=== PATIENT | female | born 1975 | race Caucasian/White ===

== ENCOUNTER → 2019-07-08 08:10 | Outpatient (CLI) | payer OTHER, SELFPAY ==
[2019-07-08 09:19] LABS: Basophils % 0.6 % (0.1-2.0); Eosinophils # 0.1 K/mm3 (0.0-0.4); Hematocrit 39.2 % (37.0-47.0); Hemoglobin 13.1 g/dL (12.2-16.2); Lymphocytes # 1.4 K/mm3 (0.7-4.5); Lymphocytes % 24.4 % (10-50); Mean Corpuscular HGB Conc 33.3 g/dL (31.8-35.4); Mean Corpuscular Hemoglobin 32.2 pg (27.0-31.2); Mean Corpuscular Volume 96.7 fl (81-99); Mean Platelet Volume 8.2 fl (7.4-10.4); Monocytes # 0.4 K/mm3 (0.1-1.0); Monocytes % 6.8 % (1.7-9.3); Neutrophils # 3.6 K/mm3 (1.8-7.8); Neutrophils % 66.1 % (37.0-80.0); Platelet Count 218 K/mm3 (142-424); Red Blood Count 4.05 M/mm3 (4.20-5.40); Red Cell Distribution Width 12.4 % (11.5-17.5); White Blood Count 5.5 K/mm3 (4.8-10.8)
[2019-07-08 13:10] LABS: Alanine Aminotransferase 12 U/L (12-78); Albumin Level 3.5 gm/dL (3.4-5.0); Albumin/Globulin Ratio 0.9 (1.1-1.8); Alkaline Phosphatase 72 U/L (46-116); Anion Gap 13.6 mEq/L (5-15); Aspartate Amino Transferase 6 U/L (15-37); Bilirubin,Total 0.3 mg/dL (0.2-1.0); Blood Urea Nitrogen 15 mg/dL (7-18); Calcium 8.1 mg/dL (8.5-10.1); Carbon Dioxide 25 mmol/L (21.0-32.0); Chloride 104 mmol/L (98-107); Chol/HDL Ratio 2.7 (1-3.5); Cholesterol 163 mg/dL (140-200); Creatinine,Serum 0.75 mg/dL (0.55-1.02); Estimated Glomerular Filt Rate 84 ml/min (>60); GFR (African American) 101 ML/MIN (>60); Globulin 3.7 gm/dl (1.3-3.2); Glucose 80 mg/dL (74-106); HDL Cholesterol 60 mg/dL (29-89); LDL Cholesterol 81 mg/dL (0-130); Potassium 4.6 mmoL/L (3.5-5.1); Sodium 138 mmol/L (136-145); Thyroid Stimulating Hormone 2.33 uIU/ml (0.358-3.740); Total Protein,Serum 7.2 gm/dL (6.4-8.2); Triglycerides 109 mg/dL (30-200); VLDL Cholesterol 22 mg/dL (0-40)
== END ==
PROVIDERS: PCP Internal Medicine Adolescent Medicine; Visit Provider Nurse Practitioner Family
DX: Z00.00 Encounter for general adult medical examination without abnormal findings (principal)
CPT/HCPCS: 36415; 80053; 80061; 84443; 85025

== ENCOUNTER → 2020-01-26 09:17 | Outpatient (CLI) | payer OTHER, SELFPAY ==
[2020-01-26 10:41] LABS: Chloride 101 mmol/L (98-107); Potassium 3.7 mmoL/L (3.5-5.1); Sodium 138 mmol/L (136-145)
[2020-01-26 10:44] LABS: Anion Gap 14.7 mEq/L (5-15); Blood Urea Nitrogen 13 mg/dl (7-17); Calcium 9.2 mg/dl (8.4-10.2); Carbon Dioxide 26 mmol/L (22.0-30.0); Estimated Glomerular Filt Rate 77 ml/min (>60); GFR (African American) 93 ML/MIN (>60); Glucose 103 mg/dl (74-100)
== END ==
PROVIDERS: Visit Provider Nurse Practitioner Family
DX: I10 Essential (primary) hypertension (principal)
CPT/HCPCS: 36415; 80048

== ENCOUNTER → 2021-05-05 14:41 | Outpatient (CLI) | payer OTHER, SELFPAY ==
[2021-05-05 16:23] LABS: Chloride 102 mmol/L (98-107); Potassium 3.8 mmoL/L (3.5-5.1); Sodium 138 mmol/L (136-145)
[2021-05-05 16:26] LABS: Anion Gap 13.8 mEq/L (5-15); Blood Urea Nitrogen 16 mg/dl (7-17); Calcium 8.9 mg/dl (8.4-10.2); Carbon Dioxide 26 mmol/L (22.0-30.0); Estimated Glomerular Filt Rate 77 ml/min (>60); GFR (African American) 93 ML/MIN (>60); Glucose 92 mg/dl (74-100)
== END ==
PROVIDERS: Visit Provider Nurse Practitioner Family
DX: I10 Essential (primary) hypertension (principal)
CPT/HCPCS: 36415; 80048

== ENCOUNTER → 2021-08-02 10:28 | Outpatient (CLI) | payer OTHER, SELFPAY ==
--- NOTE | 2021-08-02 10:29 | MM_ITS ---
PROCEDURE INFORMATION: Exam: MG Bilateral Screening 3D Mammography Exam date and time: 08/02/2021 10:29 AM Age: 45 years old Clinical indication: Encounter for screening mammogram for malignant neoplasm of breast TECHNIQUE: Imaging protocol: Screening tomosynthesis and 2D mammography including computer-aided detection (CAD) when performed. COMPARISON: 1. MG DMSB DIG MAMM-SCREEN SONA W/CAD 01/31/2017 9:44 AM 2. MG DMSB DIG MAMM-SCREEN SONA 10/19/2015 8:40 AM FINDINGS: MAMMOGRAPHY: Breast composition: The breast tissue is heterogeneously dense, which may obscure small masses. Mass: None. Architectural distortion: None. Calcifications: No suspicious calcifications. Asymmetric density: None. Skin thickening: None. Axillary adenopathy: None. IMPRESSION: No mammographic evidence of malignancy. Annual screening is recommended unless otherwise clinically indicated. ASSESSMENT: BI-RADS Category 1: Negative
== END ==
PROVIDERS: PCP Nurse Practitioner Family; Visit Provider Obstetrics & Gynecology
DX: Z12.31 Encounter for screening mammogram for malignant neoplasm of breast (principal)
CPT/HCPCS: 77063; 77067

== ENCOUNTER → 2022-08-14 07:46 | Outpatient (CLI) | payer OTHER, SELFPAY ==
--- NOTE | 2022-08-14 07:50 | MM_ITS ---
PROCEDURE INFORMATION: Exam: MG Bilateral Screening 3D Mammography Exam date and time: 08/14/2022 7:53 AM Age: 46 years old Clinical indication: Screening mammogram TECHNIQUE: Imaging protocol: Bilateral Screening tomosynthesis and 2D mammography including computer-aided detection (CAD) when performed. COMPARISON: 1. MG MM DIG SCREENING MAMM BI W/CAD 08/02/2021 10:23 AM 2. MG DMSB DIG MAMM-SCREEN SONA W/CAD 01/31/2017 9:44 AM 3. MG DMSB DIG MAMM-SCREEN SONA 10/19/2015 8:40 AM 4. MG MM DIG SCREEN MAMMO 12/02/2013 10:03 AM FINDINGS: MAMMOGRAPHY: Breast composition: There are scattered areas of fibroglandular density. Mass: None. Architectural distortion: No new or suspicious architectural distortion. Calcifications: No new or suspicious calcifications are present Asymmetric density: No new or suspicious asymmetric density is present Skin thickening: None. Axillary adenopathy: None. IMPRESSION: No mammographic evidence of malignancy. Recommend annual screening mammography unless otherwise clinically indicated. ASSESSMENT: BI-RADS category 1: Negative
== END ==
PROVIDERS: PCP Nurse Practitioner Family; Visit Provider Obstetrics & Gynecology
DX: Z12.31 Encounter for screening mammogram for malignant neoplasm of breast (principal)
CPT/HCPCS: 77063; 77067

== ENCOUNTER 2024-08-25 15:08 | Outpatient (CLI) | payer OTHER, SELFPAY ==
--- NOTE | 2024-08-25 15:08 | MM_ITS ---
PROCEDURE INFORMATION: Exam: MG Bilateral Screening 3D Mammography Exam date and time: 08/25/2024 3:13 PM Age: 48 years old Clinical indication: Screening. No family history of breast cancer. TECHNIQUE: Imaging protocol: Bilateral Screening tomosynthesis and 2D mammography including computer-aided detection (CAD) when performed. COMPARISON: 1. MG MM DIG SCREENING MAMM BI W/CAD 08/14/2022 7:53 AM 2. MG MM DIG SCREENING MAMM BI W/CAD 08/02/2021 10:23 AM 3. MG DMSB DIG MAMM-SCREEN SONA W/CAD 01/31/2017 9:44 AM 4. MG DMSB DIG MAMM-SCREEN SONA 10/19/2015 8:40 AM FINDINGS: MAMMOGRAPHY: Breast composition: There are scattered areas of fibroglandular density. Mass: None. Architectural distortion: None. Calcifications: No suspicious calcifications. Asymmetric density: None. Skin thickening: None. Axillary adenopathy: None. IMPRESSION: No mammographic evidence of malignancy. Annual screening is recommended unless otherwise clinically indicated. ASSESSMENT: BI-RADS Category 1: Negative.
== END 2024-08-25 23:59 | disposition home or self-care (01) ==
LOC: RAD 15:08
PROVIDERS: PCP Nurse Practitioner Family; Visit Provider Obstetrics & Gynecology
DX: Z12.31 Encounter for screening mammogram for malignant neoplasm of breast (principal)
CPT/HCPCS: 77063; 77067

== ENCOUNTER 2024-09-15 10:03 | Outpatient (CLI) | payer OTHER, SELFPAY ==
[2024-09-15 10:23] LABS: Basophils # 0.1 K/mm3 (0-0.2); Basophils % 0.7 % (0.1-2.0); Eosinophils # 0.1 K/mm3 (0.0-0.4); Eosinophils % 1.8 % (0.1-12.0); Hematocrit 40.7 % (37.0-47.0); Hemoglobin 13.5 g/dL (12.2-16.2); Lymphocytes # 1.4 K/mm3 (0.7-4.5); Lymphocytes % 20.2 % (10-50); Mean Corpuscular HGB Conc 33.2 g/dL (31.8-35.4); Mean Corpuscular Hemoglobin 31.5 pg (27.0-31.2); Mean Corpuscular Volume 95.1 fl (81-99); Mean Platelet Volume 9.4 fl (7.4-10.4); Monocytes # 0.7 K/mm3 (0.1-1.0); Monocytes % 10.7 % (1.7-9.3); Neutrophils # 4.5 K/mm3 (1.8-7.8); Neutrophils % 66.3 % (37.0-80.0); Platelet Count 225 K/mm3 (142-424); Red Blood Count 4.28 M/mm3 (4.20-5.40); Red Cell Distribution Width 11.9 % (11.5-17.5); White Blood Count 6.8 K/mm3 (4.8-10.8)
[2024-09-15 10:40] LABS: Albumin Level 4.6 g/dl (3.5-5.0); Chloride 104 mmol/L (98-107); Sodium 141 mmol/L (136-145)
[2024-09-15 10:41] LABS: Potassium 4.1 mmoL/L (3.5-5.1)
[2024-09-15 10:43] LABS: Alanine Aminotransferase 16 U/L (12-78); Albumin/Globulin Ratio 1.5 (1.1-1.8); Alkaline Phosphatase 84 U/L (38-126); Anion Gap 11.1 mEq/L (5-15); Aspartate Amino Transferase 21 U/L (14-36); Bilirubin,Total 0.4 mg/dl (0.2-1.3); Blood Urea Nitrogen 24 mg/dl (7-17); Carbon Dioxide 30 mmol/L (22.0-30.0); Cholesterol 201 mg/dl (140-200); Estimated Glomerular Filt Rate 76 ml/min (>60); GFR (African American) 92 ML/MIN (>60); Globulin 3.1 g/dL (1.3-3.2); Total Protein,Serum 7.7 g/dl (6.3-8.2); Triglycerides 102 mg/dl (30-150); VLDL Cholesterol 20 mg/dL (0-40)
[2024-09-15 10:44] LABS: Calcium 9.3 mg/dl (8.4-10.2); Chol/HDL Ratio 3.6 (1-3.5); Glucose 91 mg/dl (74-100); HDL Cholesterol 56 mg/dl (40-60)
[2024-09-15 10:55] LABS: Direct LDL Cholesterol 105.85 mg/dL (100-129)
[2024-09-16 03:36] LABS: Estradiol <5.0 pg/mL (.)
[2024-09-16 08:15] LABS: FSH 52.7 mIU/mL (.); LH 42.8 mIU/mL (.); Progesterone 0.1 ng/mL (.)
== END 2024-09-15 23:59 | disposition home or self-care (01) ==
LOC: LAB 10:04
PROVIDERS: Nurse Practitioner Family; Visit Provider Obstetrics & Gynecology
DX: N91.2 Amenorrhea, unspecified (principal); Z79.3 Long term (current) use of hormonal contraceptives
CPT/HCPCS: 36415; 80053; 80061; 82670; 83001; 83002; 84144; 85025

== ENCOUNTER 2024-10-16 10:53 | Outpatient (CLI) | payer OTHER, SELFPAY ==
[2024-10-17 03:41] LABS: FSH 74.1 mIU/mL (.)
[2024-10-18 20:09] LABS: Estrogen 54 pg/mL (.)
== END 2024-10-16 23:59 | disposition home or self-care (01) ==
LOC: LAB 10:53
PROVIDERS: PCP Nurse Practitioner Family; Visit Provider Obstetrics & Gynecology
DX: N91.2 Amenorrhea, unspecified (principal); Z79.3 Long term (current) use of hormonal contraceptives
CPT/HCPCS: 36415; 82672; 83001